=== PATIENT | male | born 1960 | race Caucasian/White ===

== ENCOUNTER 2020-12-26 12:11 | Emergency (ER) | payer OTHER ==
[2020-12-26 12:27] VITALS: BMI 29.2
[2020-12-26] MEDS ORDERED: FAMOTIDINE 20 MG/50 ML IVPB 20 MG/50 ML MG IVPB ONE ×2 (13:31→14:20)
[2020-12-26] MEDS ORDERED: MAG HYDROX/AL HYDROX/SIMETH 30 ML UNIT-DOSE CUP PO ONE (13:31)
[2020-12-26] MEDS ORDERED: LIDOCAINE VISCOUS 2% ORAL/TOP 20 ML UNIT-DOSE CUP MM ONE (14:04)
[2020-12-26] MEDS ORDERED: SUCRALFATE 1 GM/10 ML UNIT DOSE CUPS PO ONE (14:05)
[2020-12-26] MEDS ORDERED: MAG HYDROX/AL HYDROX/SIMETH 30 ML UNIT-DOSE CUP ONE (14:19)
[2020-12-26] MEDS ORDERED: SUCRALFATE 1 GM TABLET (FP) ONE (14:19)
[2020-12-26] MEDS ORDERED: LIDOCAINE VISCOUS 2% ORAL/TOP 20 ML UNIT-DOSE CUP ONE (14:19)
[2020-12-26 14:38] LABS: BASO % 0.7 % (0-2.0); EOS % 0.2 % (0-4.5); HEMATOCRIT 46.3 % (35.4-49); LYMPH % 26.1 % (8-40); MCH 32.3 pg (25.7-33.7); MCHC 34.5 g/dl (32.0-35.9); MEAN CELL VOLUME 93.6 fl (80-96); MEAN PLT VOLUME 8.5 fl (7.5-11.1); MONO % 7.5 % (3.8-10.2); NEUT % 65.5 % (42.8-82.8); PLATELET COUNT 346 K/MM3 (134-434); RBC 4.95 M/mm3 (4.00-5.60); WHITE BLOOD COUNT 7.4 K/mm3 (4.0-10.0)
[2020-12-26 14:58] LABS: POTASSIUM 4.1 mmol/L (3.5-5.1)
[2020-12-26 15:00] LABS: CALCIUM 9.3 mg/dL (8.5-10.1)
[2020-12-26 15:01] LABS: ALBUMIN 3.9 g/dl (3.4-5.0); BLOOD UREA NITROGEN 8.8 mg/dL (7-18)
[2020-12-26 15:04] LABS: CREATININE 0.8 mg/dL (0.55-1.3)
[2020-12-26 15:05] LABS: BILIRUBIN,TOTAL 0.4 mg/dL (0.2-1)
[2020-12-26 16:02] VITALS: TEMP 98.3
[2020-12-26 17:32] VITALS: BP 152/87; PULSE 74
== END 2020-12-26 17:30 | disposition home or self-care (01) ==
LOC: JER 12:11
PROC: 3E033GC Introduction of Other Therapeutic Substance into Peripheral Vein, Percutaneous Approach (ICD-10-PCS; principal; 2020-12-26)
DX: K29.70 Gastritis, unspecified, without bleeding (principal)
CPT/HCPCS: 36415; 71045-TC-FY; 74177-TC; 80053; 83690; 84484; 85025; 93005; 93010; 99285-25; Q9967

== ENCOUNTER 2021-03-27 14:17 | Emergency (ER) | payer OTHER ==
[2021-03-27 14:28] VITALS: TEMP 98; BMI 25.4
[2021-03-27 15:54] LABS: BASO % 1.1 % (0-2.0); EOS % 0.6 % (0-4.5); HEMATOCRIT 45.9 % (35.4-49); HEMOGLOBIN 15.5 GM/dL (11.7-16.9); LYMPH % 27.5 % (8-40); MCH 31.3 pg (25.7-33.7); MCHC 33.8 g/dl (32.0-35.9); MEAN CELL VOLUME 92.6 fl (80-96); MEAN PLT VOLUME 8.2 fl (7.5-11.1); MONO % 7.9 % (3.8-10.2); NEUT % 62.9 % (42.8-82.8); PLATELET COUNT 334 10^3/uL (134-434); RBC 4.96 M/mm3 (4.00-5.60); RDW 13.4 % (11.9-15.9); WHITE BLOOD COUNT 7.3 K/mm3 (4.0-10.0)
[2021-03-27 16:13] LABS: CHLORIDE 102 mmol/L (98-107); SODIUM 132 mmol/L (136-145)
[2021-03-27 16:14] LABS: CALCIUM 8.8 mg/dL (8.5-10.1); CO2 26 mmol/L (21-32)
[2021-03-27 16:15] LABS: GLUCOSE,RANDOM 98 mg/dL (74-106)
[2021-03-27 16:16] LABS: ANION GAP 5 MMOL/L (8-16)
[2021-03-27 16:18] LABS: CREATININE 0.9 mg/dL (0.55-1.3)
[2021-03-27 16:21] LABS: BLOOD UREA NITROGEN 8.7 mg/dL (7-18)
[2021-03-27 20:53] VITALS: BP 148/89; PULSE 86
== END 2021-03-27 20:54 | disposition home or self-care (01) ==
LOC: JER 14:17
DX: M54.12 Radiculopathy, cervical region (principal)
CPT/HCPCS: 36415; 72125-TC; 80048; 82550; 82553; 84132; 84484; 85025; 93005; 93010; 99285-25

== ENCOUNTER 2021-12-18 09:36 | Emergency (ER) | payer OTHER ==
[2021-12-18 10:05] VITALS: BMI 32.8
[2021-12-18] MEDS ORDERED: MAG HYDROX/AL HYDROX/SIMETH 30 ML UNIT-DOSE CUP PO ONE (11:01)
[2021-12-18] MEDS ORDERED: FAMOTIDINE 20 MG/50 ML IVPB 20 MG/50 ML MG IVPB ONE ×2 (11:03→11:22)
[2021-12-18] MEDS ORDERED: LIDOCAINE 5% TOPICAL PATCH TP ONE (11:03)
[2021-12-18] MEDS ORDERED: ACETAMINOPHEN 1000 MG/100 ML BAG IVPB ONE (11:03)
[2021-12-18] MEDS ORDERED: ACETAMINOPHEN INJECTION 100 ML IVPB ONE (11:22)
[2021-12-18] MEDS ORDERED: MAG HYDROX/AL HYDROX/SIMETH 30 ML UNIT-DOSE CUP ONE (11:22)
[2021-12-18] MEDS ORDERED: LIDOCAINE 5% TOPICAL PATCH ONE (11:22)
[2021-12-18 11:28] LABS: BASO % 0.6 % (0-2.0); EOS % 0.6 % (0-4.5); HEMATOCRIT 42.2 % (35.4-49); HEMOGLOBIN 14.7 GM/dL (11.7-16.9); LYMPH % 22.8 % (8-40); MCH 31.9 pg (25.7-33.7); MCHC 34.9 g/dl (32.0-35.9); MEAN CELL VOLUME 91.4 fl (80-96); MEAN PLT VOLUME 7.6 fl (7.5-11.1); MONO % 6.1 % (3.8-10.2); NEUT % 69.9 % (42.8-82.8); PLATELET COUNT 320 10^3/uL (134-434); RBC 4.62 M/mm3 (4.00-5.60); RDW 13.5 % (11.9-15.9); WHITE BLOOD COUNT 6.1 K/mm3 (4.0-10.0)
[2021-12-18 11:37] LABS: INR 1.08 (0.83-1.09); PROTHROMBIN TIME (PATIENT) 12.4 SEC (9.7-13.0)
[2021-12-18 11:52] LABS: BILIRUBIN,TOTAL 0.4 mg/dL (0.2-1)
[2021-12-18 12:02] LABS: CALCIUM 9.2 mg/dL (8.5-10.1)
[2021-12-18 12:03] LABS: ALBUMIN 3.9 g/dl (3.4-5.0)
[2021-12-18 12:06] LABS: CREATININE 0.8 mg/dL (0.55-1.3)
[2021-12-18 12:07] LABS: TOT PROT 7.8 g/dl (6.4-8.2)
[2021-12-18 15:01] VITALS: BP 148/88; PULSE 93; TEMP 97.5
[2021-12-18] MEDS ORDERED: LIDOCAINE PATCH REMOVAL MC ONE (22:00)
== END 2021-12-18 16:29 | disposition home or self-care (01) ==
LOC: JER 09:36
PROC: 3E0333Z Introduction of Anti-inflammatory into Peripheral Vein, Percutaneous Approach (ICD-10-PCS; principal; 2021-12-18)
PROC: 3E033GC Introduction of Other Therapeutic Substance into Peripheral Vein, Percutaneous Approach (ICD-10-PCS; 2021-12-18)
DX: K29.70 Gastritis, unspecified, without bleeding (principal); M54.12 Radiculopathy, cervical region; R07.9 Chest pain, unspecified
CPT/HCPCS: 36415; 71045-TC-FY; 71275-TC; 74174-TC; 80053; 84484; 85025; 85610; 85730; 93005; 93010; 99285-25; Q9967

== ENCOUNTER 2022-09-23 10:02 | Emergency (ER) | payer OTHER ==
[2022-09-23 10:20] VITALS: BP 130/85; PULSE 92; RESP 88; TEMP 98.2; BMI 32.3
[2022-09-23] MEDS ORDERED: MAG HYDROX/AL HYDROX/SIMETH 30 ML UNIT-DOSE CUP PO ONE (10:56)
[2022-09-23] MEDS ORDERED: FAMOTIDINE 20 MG TABLET PO ONE (10:56)
[2022-09-23] MEDS ORDERED: FAMOTIDINE 20 MG TABLET ONE (10:58)
[2022-09-23] MEDS ORDERED: MAG HYDROX/AL HYDROX/SIMETH 30 ML UNIT-DOSE CUP ONE (10:59)
[2022-09-23 12:16] LABS: BASO % 0.9 % (0-2.0); EOS % 0.2 % (0-4.5); HEMATOCRIT 51.6 % (35.4-49); HEMOGLOBIN 16.7 GM/dL (11.7-16.9); LYMPH % 18.1 % (8-40); MCH 30.7 pg (25.7-33.7); MCHC 32.5 g/dl (32.0-35.9); MEAN CELL VOLUME 94.4 fl (80-96); MEAN PLT VOLUME 7.9 fl (7.5-11.1); MONO % 5.6 % (3.8-10.2); NEUT % 75.2 % (42.8-82.8); PLATELET COUNT 384 10^3/uL (134-434); RBC 5.46 M/mm3 (4.00-5.60); RDW 13.5 % (11.9-15.9); WHITE BLOOD COUNT 9.7 K/mm3 (4.0-10.0)
[2022-09-23 12:56] LABS: ALBUMIN 3.9 g/dl (3.4-5.0); BLOOD UREA NITROGEN 12.8 mg/dL (7-18); CALCIUM 9.3 mg/dL (8.5-10.1)
[2022-09-23 13:00] LABS: BILIRUBIN,TOTAL 0.8 mg/dL (0.2-1); TOT PROT 8.2 g/dl (6.4-8.2)
== END 2022-09-23 15:40 | disposition home or self-care (01) ==
LOC: JER 10:02
DX: R07.9 Chest pain, unspecified (principal)
CPT/HCPCS: 36415; 71046-TC-FY; 80053; 83690; 84484; 85025; 85379; 93005; 93010; 99285-25

== ENCOUNTER 2023-09-03 07:44 | Emergency (ER) | payer OTHER ==
[2023-09-03 07:53] VITALS: BMI 29.2
[2023-09-03] MEDS ORDERED: MAG HYDROX/AL HYDROX/SIMETH 30 ML UNIT-DOSE CUP PO ONE (09:42)
[2023-09-03] MEDS ORDERED: ACETAMINOPHEN 325 MG TABLET (FP) PO ONE (09:42)
[2023-09-03] MEDS ORDERED: FAMOTIDINE 20 MG TABLET PO ONE (09:42)
[2023-09-03] MEDS ORDERED: ACETAMINOPHEN 325 MG TABLET (FP) ONE (09:56)
[2023-09-03] MEDS ORDERED: FAMOTIDINE 20 MG TABLET ONE (09:56)
[2023-09-03] MEDS ORDERED: MAG HYDROX/AL HYDROX/SIMETH 30 ML UNIT-DOSE CUP ONE (09:57)
[2023-09-03 10:13] LABS: BASO % 0.9 % (0-2.0); EOS % 0.3 % (0-4.5); HEMATOCRIT 50.2 % (35.4-49); HEMOGLOBIN 17.1 GM/dL (11.7-16.9); LYMPH % 18.2 % (8-40); MCH 32.4 pg (25.7-33.7); MEAN CELL VOLUME 95.1 fl (80-96); MEAN PLT VOLUME 8.1 fl (7.5-11.1); MONO % 6.1 % (3.8-10.2); NEUT % 74.5 % (42.8-82.8); PLATELET COUNT 355 10^3/uL (134-434); RBC 5.28 M/mm3 (4.00-5.60); RDW 13.5 % (11.9-15.9); WHITE BLOOD COUNT 7.8 K/mm3 (4.0-10.0)
[2023-09-03 10:38] LABS: URINE APPEARANCE CLEAR; URINE BILIRUBIN NEGATIVE (NEGATIVE); URINE COLOR YELLOW; URINE GLUCOSE (UA) NEGATIVE (NEGATIVE); URINE KETONE NEGATIVE (NEGATIVE); URINE LEUK ESTERASE NEGATIVE (NEGATIVE); URINE NITRITE NEGATIVE (NEGATIVE); URINE PROTEIN NEGATIVE (NEGATIVE); URINE UROBILINOGEN 0.2 mg/dL (0.2-1.0)
[2023-09-03 10:49] LABS: POTASSIUM 4.7 mmol/L (3.5-5.1)
[2023-09-03 10:51] LABS: CALCIUM 9.5 mg/dL (8.5-10.1)
[2023-09-03 10:52] LABS: ALBUMIN 3.9 g/dl (3.4-5.0); BLOOD UREA NITROGEN 8.2 mg/dL (7-18)
[2023-09-03 10:56] LABS: BILIRUBIN,TOTAL 0.6 mg/dL (0.2-1); CREATININE 0.9 mg/dL (0.55-1.3); TOT PROT 8.4 g/dl (6.4-8.2)
[2023-09-03 13:22] VITALS: BP 171/85; PULSE 81; RESP 20; TEMP 98.2
== END 2023-09-03 14:13 | disposition home or self-care (01) ==
LOC: JER 07:44
DX: R10.13 Epigastric pain (principal); R42 Dizziness and giddiness; R10.12 Left upper quadrant pain
CPT/HCPCS: 36415; 71046-TC-FY; 74176-TC; 80053; 81003; 84484; 85025; 86850; 86900; 86901; 87086; 93005; 93010; 99285-25

== ENCOUNTER 2023-09-05 12:07 | Observation (INO) | payer OTHER ==
[2023-09-05] MEDS: SODIUM CHLORIDE 1,000 ML IV SCH (12:49)
[2023-09-05 13:02] LABS: BASO % 0.8 % (0-2.0); EOS % 0.4 % (0-4.5); HEMATOCRIT 47.7 % (35.4-49); HEMOGLOBIN 16.4 GM/dL (11.7-16.9); LYMPH % 21.6 % (8-40); MCH 32.3 pg (25.7-33.7); MCHC 34.4 g/dl (32.0-35.9); MEAN CELL VOLUME 93.8 fl (80-96); MEAN PLT VOLUME 8.6 fl (7.5-11.1); MONO % 6.8 % (3.8-10.2); NEUT % 70.4 % (42.8-82.8); PLATELET COUNT 350 10^3/uL (134-434); RBC 5.08 M/mm3 (4.00-5.60); RDW 13.9 % (11.9-15.9); WHITE BLOOD COUNT 7.1 K/mm3 (4.0-10.0)
[2023-09-05 13:04] LABS: INR 1.08 (0.83-1.09); PROTHROMBIN TIME (PATIENT) 12.5 SEC (9.7-13.0)
[2023-09-05 13:07] LABS: ACTIVATED PTT 29.6 SECONDS (25.2-36.5)
[2023-09-05 13:21] LABS: URINE APPEARANCE CLEAR; URINE BILIRUBIN NEGATIVE (NEGATIVE); URINE COLOR YELLOW; URINE GLUCOSE (UA) NEGATIVE (NEGATIVE); URINE KETONE TRACE (NEGATIVE); URINE LEUK ESTERASE NEGATIVE (NEGATIVE); URINE NITRITE NEGATIVE (NEGATIVE); URINE PROTEIN NEGATIVE (NEGATIVE); URINE UROBILINOGEN 0.2 mg/dL (0.2-1.0)
[2023-09-05 13:25] LABS: ALBUMIN 3.9 g/dl (3.4-5.0); CALCIUM 8.8 mg/dL (8.5-10.1)
[2023-09-05 13:26] LABS: BLOOD UREA NITROGEN 6.6 mg/dL (7-18)
[2023-09-05 13:30] LABS: TOT PROT 8.1 g/dl (6.4-8.2)
[2023-09-05 13:31] LABS: BILIRUBIN,TOTAL 0.8 mg/dL (0.2-1)
[2023-09-05] MEDS ORDERED: ASPIRIN 325 MG ENTERIC COATED TABLET (FP) ONE (14:00)
[2023-09-05] MEDS ORDERED: ATORVASTATIN CA 80 MG TABLET (FP) ONE (14:00)
[2023-09-05] MEDS: ATORVASTATIN CA 80 MG TABLET (FP) PO ONE (14:04)
[2023-09-05] MEDS: ASPIRIN 325 MG ENTERIC COATED TABLET (FP) PO ONE (14:04)
[2023-09-05] MEDS: NIFEdipine E.R. 30 MG TABLET PO SCH (16:48)
[2023-09-05 17:17] VITALS: RESP 18
[2023-09-05 21:18] VITALS: BMI 31.6
[2023-09-06 07:12] LABS: EOS % 1.9 % (0-4.5); HEMATOCRIT 44.4 % (35.4-49); HEMOGLOBIN 14.9 GM/dL (11.7-16.9); LYMPH % 33.8 % (8-40); MCHC 33.6 g/dl (32.0-35.9); MEAN CELL VOLUME 95.2 fl (80-96); MEAN PLT VOLUME 8.7 fl (7.5-11.1); MONO % 7.8 % (3.8-10.2); NEUT % 55.5 % (42.8-82.8); PLATELET COUNT 316 10^3/uL (134-434); RBC 4.66 M/mm3 (4.00-5.60); RDW 13.6 % (11.9-15.9)
[2023-09-06 07:27] LABS: CHOLESTEROL 224 mg/dL (50-200)
[2023-09-06 07:29] LABS: LDL CHOLESTEROL (ONLY SJRH) 162 mg/dL (5-100)
[2023-09-06 07:31] LABS: HDL CHOLESTEROL 37 mg/dL (40-60)
[2023-09-06 07:38] LABS: POTASSIUM 3.7 mmol/L (3.5-5.1)
[2023-09-06 07:41] LABS: CALCIUM 8.6 mg/dL (8.5-10.1)
[2023-09-06 07:42] LABS: ALBUMIN 3.2 g/dl (3.4-5.0); BLOOD UREA NITROGEN 13.6 mg/dL (7-18); MAGNESIUM 2.1 mg/dL (1.8-2.4)
[2023-09-06 07:45] LABS: PHOSPHOROUS 3.7 mg/dL (2.5-4.9); TOT PROT 6.7 g/dl (6.4-8.2)
[2023-09-06 07:46] LABS: BILIRUBIN,TOTAL 0.5 mg/dL (0.2-1)
[2023-09-06] MEDS: ENOXAPARIN NA (PORCINE) 40 MG/0.4 ML DISP.SYRIN SQ SCH (10:22)
[2023-09-06] MEDS: ASPIRIN 81 MG CHEWABLE TABLETS PO SCH (10:23)
[2023-09-06] MEDS: LOSARTAN POTASSIUM 25 MG TABLET PO ONE (13:24)
[2023-09-06 18:18] VITALS: BP 136/82; PULSE 74; TEMP 98
[2023-09-06] MEDS ORDERED: ATORVASTATIN CA 80 MG TABLET (FP) PO SCH (22:00)
== END 2023-09-06 19:05 | disposition home or self-care (01) ==
LOC: JER 12:07 → JERBED 14:24 → J4W 20:46
PROVIDERS: ADMIT Internal Medicine; ATTEND Internal Medicine
PROC: 3E023GC Introduction of Other Therapeutic Substance into Muscle, Percutaneous Approach (ICD-10-PCS; principal; 2023-09-05)
PROC: 3E0337Z Introduction of Electrolytic and Water Balance Substance into Peripheral Vein, Percutaneous Approach (ICD-10-PCS; 2023-09-05)
DX: R20.0 Anesthesia of skin (principal); M54.12 Radiculopathy, cervical region; E78.5 Hyperlipidemia, unspecified; K29.70 Gastritis, unspecified, without bleeding; I10 Essential (primary) hypertension; R73.03 Prediabetes
CPT/HCPCS: 36415; 70450-TC; 70551-TC; 80053; 80061; 81003; 82550; 82553; 83036; 83735; 84100; 84484; 85025; 85610; 85730; 86850; 86900; 86901; 93005; 93010; 93880-TC; 96360; 96372; 99285-25; G0378

== ENCOUNTER 2023-12-20 12:02 | Observation (INO) | payer OTHER ==
[2023-12-20 12:29] VITALS: BMI 31.5
[2023-12-20] MEDS ORDERED: METOCLOPRAMIDE HCL INJECTION 10 MG/2 ML VIAL ONE (13:11)
[2023-12-20] MEDS ORDERED: ACETAMINOPHEN INJECTION 100 ML IVPB ONE (13:12)
[2023-12-20] MEDS: ACETAMINOPHEN 1000 MG/100 ML BAG IVPB ONE (13:25)
[2023-12-20 13:41] LABS: BASO % 0.7 % (0-2.0); EOS % 0.3 % (0-4.5); HEMATOCRIT 50.2 % (35.4-49); HEMOGLOBIN 16.6 GM/dL (11.7-16.9); LYMPH % 17.6 % (8-40); MCH 31.6 pg (25.7-33.7); MEAN CELL VOLUME 95.7 fl (80-96); MEAN PLT VOLUME 8.5 fl (7.5-11.1); MONO % 6.1 % (3.8-10.2); NEUT % 75.3 % (42.8-82.8); PLATELET COUNT 380 10^3/uL (134-434); RBC 5.25 M/mm3 (4.00-5.60); RDW 13.5 % (11.9-15.9); WHITE BLOOD COUNT 8.3 K/mm3 (4.0-10.0)
[2023-12-20 13:51] LABS: INR 1.11 (0.83-1.09); PROTHROMBIN TIME (PATIENT) 12.9 SEC (9.7-13.0)
[2023-12-20 13:54] LABS: ACTIVATED PTT 31.1 SECONDS (25.2-36.5)
[2023-12-20 13:56] LABS: POTASSIUM 4.4 mmol/L (3.5-5.1)
[2023-12-20 13:58] LABS: CALCIUM 9.5 mg/dL (8.5-10.1)
[2023-12-20 13:59] LABS: ALBUMIN 3.8 g/dl (3.4-5.0); BLOOD UREA NITROGEN 6.8 mg/dL (7-18)
[2023-12-20] MEDS: METOCLOPRAMIDE HCL INJECTION 10 MG/2 ML VIAL IVPB ONE (14:00)
[2023-12-20 14:02] LABS: CREATININE 0.9 mg/dL (0.55-1.3)
[2023-12-20 14:03] LABS: BILIRUBIN,TOTAL 0.4 mg/dL (0.2-1)
[2023-12-20 14:04] LABS: TOT PROT 8.3 g/dl (6.4-8.2)
[2023-12-20] MEDS ORDERED: LOSARTAN POTASSIUM 25 MG TABLET ONE (16:01)
[2023-12-20] MEDS: LOSARTAN POTASSIUM 25 MG TABLET PO ONE (16:02)
[2023-12-20] MEDS ORDERED: ACETAMINOPHEN 325 MG TABLET (FP) PO PRN (16:42)
[2023-12-20] MEDS ORDERED: ATORVASTATIN CA 20 MG TABLET (FP) ONE (23:37)
[2023-12-20] MEDS: ATORVASTATIN CA 40 MG TABLET (FP) PO SCH (23:47)
[2023-12-21 08:08] LABS: CHOLESTEROL 238 mg/dL (50-200)
[2023-12-21 08:09] LABS: LDL CHOLESTEROL (ONLY SJRH) 178 mg/dL (5-100)
[2023-12-21 08:11] LABS: HDL CHOLESTEROL 40 mg/dL (40-60)
[2023-12-21] MEDS: ASPIRIN 81 MG CHEWABLE TABLETS PO SCH (10:18)
[2023-12-21] MEDS: HYDROCHLOROTHIAZIDE 25 MG TABLET (FP) PO SCH (10:18)
[2023-12-21] MEDS: LOSARTAN POTASSIUM 25 MG TABLET PO SCH (10:18)
[2023-12-21] MEDS: FAMOTIDINE 20 MG TABLET PO SCH (10:19)
[2023-12-21] MEDS: ACETAMINOPHEN 325 MG TABLET (FP) PO PRN (18:46)
[2023-12-21] MEDS: ATORVASTATIN CA 40 MG TABLET (FP) PO SCH (21:36)
[2023-12-22 06:14] VITALS: RESP 18
[2023-12-22] MEDS: ASPIRIN 81 MG CHEWABLE TABLETS PO SCH (09:32)
[2023-12-22] MEDS: LOSARTAN POTASSIUM 50 MG TABLET PO SCH (09:32)
[2023-12-22] MEDS: FAMOTIDINE 20 MG TABLET PO SCH (09:32)
[2023-12-22] MEDS: HYDROCHLOROTHIAZIDE 25 MG TABLET (FP) PO SCH (09:32)
[2023-12-22 09:40] LABS: BASO % 0.9 % (0-2.0); EOS % 0.8 % (0-4.5); HEMATOCRIT 49.9 % (35.4-49); HEMOGLOBIN 17.2 GM/dL (11.7-16.9); MCH 32.5 pg (25.7-33.7); MCHC 34.5 g/dl (32.0-35.9); MEAN CELL VOLUME 94.2 fl (80-96); MEAN PLT VOLUME 8.7 fl (7.5-11.1); MONO % 6.1 % (3.8-10.2); NEUT % 67.2 % (42.8-82.8); PLATELET COUNT 381 10^3/uL (134-434); RDW 13.9 % (11.9-15.9)
[2023-12-22 10:02] LABS: POTASSIUM 4.3 mmol/L (3.5-5.1)
[2023-12-22 10:14] LABS: CALCIUM 9.3 mg/dL (8.5-10.1)
[2023-12-22 10:15] LABS: BLOOD UREA NITROGEN 12.7 mg/dL (7-18)
[2023-12-22 10:18] LABS: CREATININE 1.1 mg/dL (0.55-1.3)
[2023-12-22 14:22] VITALS: BP 130/88; PULSE 99; TEMP 98
== END 2023-12-22 18:34 | disposition home or self-care (01) ==
LOC: JER 12:02 → JERBED 16:30 → J5S 12-21 14:01
PROVIDERS: ADMIT Internal Medicine; ATTEND Internal Medicine
PROC: 3E033NZ Introduction of Analgesics, Hypnotics, Sedatives into Peripheral Vein, Percutaneous Approach (ICD-10-PCS; principal; 2023-12-20)
PROC: 3E033GC Introduction of Other Therapeutic Substance into Peripheral Vein, Percutaneous Approach (ICD-10-PCS; 2023-12-20)
DX: I16.0 Hypertensive urgency (principal); E78.5 Hyperlipidemia, unspecified; R07.9 Chest pain, unspecified; K21.9 Gastro-esophageal reflux disease without esophagitis; Z86.73 Personal history of transient ischemic attack (TIA), and cerebral infarction without residual deficits; Z91.141 Patient's other noncompliance with medication regimen due to financial hardship
CPT/HCPCS: 0241U-QW; 36415; 70450-TC; 71275-TC; 74174-TC; 80048; 80053; 80061; 82550; 82962; 84484; 85025; 85610; 85730; 86850; 86900; 86901; 93005; 93010; 96374; 96375; 97116-GP; 97161-GP; 99285-25; G0378; J0131; Q9967

== ENCOUNTER 2024-03-17 17:04 | Emergency (ER) | payer SELFPAY ==
[2024-03-17 17:09] VITALS: RESP 18; TEMP 98.1; BMI 30.1
[2024-03-17 18:02] LABS: BASO % 0.7 % (0-2.0); EOS % 0.4 % (0-4.5); HEMOGLOBIN 16.3 GM/dL (11.7-16.9); MCH 31.9 pg (25.7-33.7); MEAN CELL VOLUME 93.9 fl (80-96); MEAN PLT VOLUME 8.1 fl (7.5-11.1); MONO % 7.7 % (3.8-10.2); NEUT % 69.2 % (42.8-82.8); PLATELET COUNT 361 10^3/uL (134-434); RBC 5.12 M/mm3 (4.00-5.60); RDW 13.6 % (11.9-15.9)
[2024-03-17 18:21] LABS: URINE APPEARANCE Clear; URINE BILIRUBIN Negative (NEGATIVE); URINE COLOR Yellow; URINE GLUCOSE (UA) Negative (NEGATIVE); URINE KETONE Negative (NEGATIVE); URINE LEUK ESTERASE Negative (NEGATIVE); URINE NITRITE Negative (NEGATIVE); URINE PROTEIN Negative (NEGATIVE); URINE UROBILINOGEN 0.2 mg/dL (0.2-1.0)
[2024-03-17] MEDS: SODIUM CHLORIDE 0.9% 500 ML INFUS.BAG IV ONE (18:21)
[2024-03-17 18:24] LABS: POTASSIUM 3.6 mmol/L (3.5-5.1)
[2024-03-17 18:26] LABS: ALBUMIN 4.1 g/dl (3.4-5.0); BLOOD UREA NITROGEN 8.2 mg/dL (7-18); CALCIUM 9.1 mg/dL (8.5-10.1)
[2024-03-17 18:29] LABS: CREATININE 0.8 mg/dL (0.55-1.3)
[2024-03-17 18:31] LABS: BILIRUBIN,TOTAL 0.4 mg/dL (0.2-1); TOT PROT 8.2 g/dl (6.4-8.2)
[2024-03-17 18:40] LABS: EPI CELLS 1 /uL (0-25.1); HYALINE CASTS 0 /uL (0-3.1); URINE BACTERIA 0 /uL (0-1359); URINE RBC 13 /uL (0-23.9); URINE WBC 2 /uL (0-25.8)
[2024-03-17] MEDS ORDERED: HYDROCHLOROTHIAZIDE 25 MG TABLET (FP) ONE (19:05)
[2024-03-17] MEDS ORDERED: LOSARTAN POTASSIUM 25 MG TABLET ONE (19:06)
[2024-03-17] MEDS: HYDROCHLOROTHIAZIDE 25 MG TABLET (FP) PO ONE (19:08)
[2024-03-17] MEDS: LOSARTAN POTASSIUM 25 MG TABLET PO ONE (19:08)
[2024-03-17 19:40] VITALS: BP 156/89; PULSE 88
== END 2024-03-17 19:41 | disposition home or self-care (01) ==
LOC: JER 17:04
DX: R42 Dizziness and giddiness (principal); I10 Essential (primary) hypertension; M79.89 Other specified soft tissue disorders; R20.2 Paresthesia of skin; Z20.822 Contact with and (suspected) exposure to COVID-19
CPT/HCPCS: 0241U-QW; 36415; 71046-TC-FY; 80053; 81003; 84484; 85025; 87086; 93005; 93010; 99285-25